=== PATIENT | female | born 1945 | race Caucasian/White ===

== ENCOUNTER 2023-12-04 22:30 | Inpatient (IN) | payer BC, MEDICARE, OTHER ==
[~2023-12-04] VITALS: Ht 165.1 cm; Wt 71.2 kg
[~2023-12-04 22:30] MED LIST: PIPE3.379 IV
[2023-12-04] MEDS ORDERED: CEFEPIME 1 GM VIAL ONE (22:53)
[2023-12-04] MEDS ORDERED: VANCOMYCIN 1 GM /D5W 250 ML PB IV ONE (22:53)
[2023-12-04 23:10] LABS: BASOPHILS % (AUTO) 0.2 % (0.0-2.0); HEMATOCRIT 27 % (33-45); HEMOGLOBIN 8.1 g/dL (11.5-14.8); LYMPHOCYTES # (AUTO) 1.9 K/uL (0.8-4.8); LYMPHOCYTES % (AUTO) 13.8 % (20.0-44.0); MEAN CORPUSCULAR HEMOGLOBIN 29 PG (26.0-33.0); MEAN CORPUSCULAR HGB CONC 30 g/dl (31.0-36.0); MEAN CORPUSCULAR VOLUME 97 fL (82-100); MONOCYTES # (AUTO) 1.3 K/uL (0.1-1.30); MONOCYTES % (AUTO) 9.2 % (2.0-12.0); NEUTROPHILS # (AUTO) 10.4 K/uL (1.8-8.9); NEUTROPHILS % (AUTO) 76.8 % (43.0-81.0); PLATELET COUNT (AUTO) 202 K/uL (150-450); RED BLOOD CELL COUNT(AUTO) 2.76 MIL/uL (4.0-5.2); RED CELL DISTRIBUTION WIDTH 22.7 % (11.5-15.0); WHITE BLOOD COUNT (AUTO) 13.6 K/uL (4.3-11.0)
[2023-12-04 23:23] LABS: INR 1.3 (0.91-1.10); PARTIAL THROMBOPLASTIN TIME 36.6 SEC (24.3-34.3); PROTHROMBIN TIME 13.5 SECS (9.2-11.1)
[2023-12-04] MEDS: CEFEPIME 1 GM in IV D5W 50 ML IV ONE (23:25)
[2023-12-04 23:29] LABS: CALCIUM, SERUM 10.1 mg/dL (8.5-10.1); CARBON DIOXIDE 25 mmol/L (21-32); CHLORIDE 105 mmol/L (98-107); CREATININE 2.1 mg/dL (0.6-1.3); GLUCOSE 110 mg/dL (74-106); POTASSIUM 3.8 mmol/L (3.5-5.1); SODIUM SERUM 140 mmol/L (136-145); UREA NITROGEN, BLOOD 36 mg/dL (7-18)
[2023-12-04 23:35] LABS: ALBUMIN 1.6 g/dL (3.4-5.0); ALKALINE PHOSPHATASE 127 U/L (46-116); ASPARTATE AMINOTRANSFERASE 17 U/L (15-37); BILIRUBIN,DIRECT 0.2 mg/dL (0.0-0.2); BILIRUBIN,TOTAL 0.5 mg/dL (0.2-1.0); TOTAL PROTEIN, SERUM 6.3 g/dL (6.4-8.2)
[2023-12-04 23:36] LABS: ALANINE AMINOTRANSFERASE < 6 U/L (12-78)
[2023-12-04 23:40] LABS: ADD URINE CULTURE YES; APPEARANCE,URINE CLOUDY (CLEAR); BACTERIA,URINE Moderate /HPF (None Seen); BILIRUBIN,URINE NEGATIVE (NEGATIVE); BLOOD, URINE 1+ Ery/uL (NEGATIVE); COLOR,URINE DARK YELLOW (YELLOW); KETONES,URINE NEGATIVE (NEGATIVE); LEUKOCYTE ESTERASE ,URINE 3+ (NEGATIVE); NITRITE, URINE POSITIVE (NEGATIVE); PROTEIN,URINE 1+ mg/dl (NEGATIVE); SQUAMOUS EPITHELIAL CELL,UR Rare /HPF (None Seen); UGLUCOSE NEGATIVE (NEGATIVE); UROBILINOGEN,URINE 0.2 EU/dL (0.2); WBC,URINE 21-50 /HPF (0-3)
[2023-12-04] MEDS: VANCOMYCIN 1 GM in IV D5W 250 ML IV ONE (23:43)
[2023-12-04] MEDS: IV NS 0.9% 1,000 ML BAG IV ONE (23:43)
[2023-12-04 23:52] LABS: LACTIC ACID 1.5 mmol/L (0.4-2.0)
[2023-12-05] VITALS (10 sets, daily range): BP systolic 94–117; BP diastolic 56–72; TEMP 97.5–98.1; O2SAT 99–100
[2023-12-05 00:29] LABS: LIPASE 18 U/L (16-77); NT-PRO BNP > 25000 pg/mL (0-125)
[2023-12-05] MEDS ORDERED: ALBUTEROL FS 2.5 MG/3 ML VIAL.NEB NEB PRN (01:00)
[2023-12-05] MEDS ORDERED: ZOLPIDEM TARTRATE 5 MG TABLET PO PRN (01:00)
[2023-12-05] MEDS ORDERED: ONDANSETRON HCL/PF 4 MG/2 ML VIAL IVP PRN (01:00)
[2023-12-05] MEDS ORDERED: MAG HYDROX/AL HYDROX/SIMETH 30 ML UDC PO PRN (01:00)
[2023-12-05] MEDS ORDERED: MAGNESIUM HYDROXIDE 30 ML UDC PO PRN (01:00)
[2023-12-05] MEDS ORDERED: IPRATROPIUM NEB FS 0.5 MG/2.5 ML AMPUL.NEB NEB PRN (01:00)
[2023-12-05] MEDS: FUROSEMIDE 20 MG/2 ML VIAL IV SCH (01:52)
[2023-12-05] MEDS: ENOXAPARIN SODIUM 30 MG/0.3 ML DISP.SYRIN SQ SCH (01:53)
[2023-12-05 07:05] LABS: BASOPHILS % (AUTO) 0.2 % (0.0-2.0); HEMATOCRIT 22 % (33-45); LYMPHOCYTES # (AUTO) 1.5 K/uL (0.8-4.8); LYMPHOCYTES % (AUTO) 13.8 % (20.0-44.0); MEAN CORPUSCULAR HEMOGLOBIN 29 PG (26.0-33.0); MEAN CORPUSCULAR HGB CONC 32 g/dl (31.0-36.0); MEAN CORPUSCULAR VOLUME 92 fL (82-100); MONOCYTES # (AUTO) 1.3 K/uL (0.1-1.30); MONOCYTES % (AUTO) 11.9 % (2.0-12.0); NEUTROPHILS # (AUTO) 8.2 K/uL (1.8-8.9); NEUTROPHILS % (AUTO) 74.1 % (43.0-81.0); PLATELET COUNT (AUTO) 184 K/uL (150-450); RED BLOOD CELL COUNT(AUTO) 2.37 MIL/uL (4.0-5.2); RED CELL DISTRIBUTION WIDTH 22.1 % (11.5-15.0); WHITE BLOOD COUNT (AUTO) 11.1 K/uL (4.3-11.0)
[2023-12-05 07:15] LABS: ALANINE AMINOTRANSFERASE < 6 U/L (12-78); ALKALINE PHOSPHATASE 108 U/L (46-116); ASPARTATE AMINOTRANSFERASE 14 U/L (15-37); BILIRUBIN,DIRECT 0.2 mg/dL (0.0-0.2); BILIRUBIN,TOTAL 0.4 mg/dL (0.2-1.0); CALCIUM, SERUM 9.6 mg/dL (8.5-10.1); CARBON DIOXIDE 23 mmol/L (21-32); CHLORIDE 105 mmol/L (98-107); CREATININE 2.1 mg/dL (0.6-1.3); GLUCOSE 98 mg/dL (74-106); MAGNESIUM 2.3 mg/dL (1.8-2.4); NT-PRO BNP > 25000 pg/mL (0-125); PHOSPHORUS 3.8 mg/dL (2.5-4.9); POTASSIUM 3.2 mmol/L (3.5-5.1); SODIUM SERUM 139 mmol/L (136-145); TOTAL PROTEIN, SERUM 5.4 g/dL (6.4-8.2); UREA NITROGEN, BLOOD 36 mg/dL (7-18)
[2023-12-05 07:40] LABS: ALBUMIN 1.3 g/dL (3.4-5.0)
[2023-12-05 07:41] LABS: HEMOGLOBIN 6.9 g/dL (11.5-14.8)
[2023-12-05] MEDS: PANTOPRAZOLE 40 MG VIAL IV SCH (08:36)
[2023-12-05] MEDS: CEFEPIME 2 GM in IV D5W 100 ML IV SCH (08:37)
[2023-12-05] MEDS ORDERED: NEOM28.43 TP (10:43)
[2023-12-05] MEDS ORDERED: AMIN30LI25 PO (10:43)
[2023-12-05] MEDS ORDERED: LACT1CAP57 PO (10:43)
[2023-12-05] MEDS ORDERED: TRAM50TA2 PO (10:43)
[2023-12-05] MEDS ORDERED: BUDE0.253 IH (10:43)
[2023-12-05] MEDS ORDERED: TIOT18CA3 IH (10:43)
[2023-12-05] MEDS ORDERED: MULT-213 PO (10:43)
[2023-12-05] MEDS ORDERED: ACET325T53 PO ×2 (10:43)
[2023-12-05] MEDS ORDERED: BISA10SU11 RC (10:43)
[2023-12-05] MEDS ORDERED: FAMO20TA8 PO (10:43)
[2023-12-05] MEDS ORDERED: NA P133E RC (10:43)
[2023-12-05] MEDS ORDERED: VENL75TA4 PO (10:43)
[2023-12-05] MEDS ORDERED: CLOP75TA15 PO (10:43)
[2023-12-05] MEDS ORDERED: VITS42.53 TP (10:43)
[2023-12-05] MEDS ORDERED: PREG-57 PO (10:43)
[2023-12-05] MEDS ORDERED: DOCU100C36 PO (10:43)
[2023-12-05] MEDS ORDERED: EPOE1VIA4 SQ (10:43)
[2023-12-05] MEDS ORDERED: FOLI0.4T6 PO (10:43)
[2023-12-05] MEDS ORDERED: FERR325T23 PO (10:43)
[2023-12-05] MEDS ORDERED: ISOS30TA86 PO (10:43)
[2023-12-05] MEDS ORDERED: OMEG1CAP PO (10:43)
[2023-12-05] MEDS ORDERED: MAGN400T8 PO (10:43)
[2023-12-05] MEDS ORDERED: OLAN5TAB3 PO (10:43)
[2023-12-05] MEDS ORDERED: METO-358 PO (10:43)
[2023-12-05] MEDS ORDERED: SENN8.6T19 PO (10:43)
[2023-12-05] MEDS ORDERED: CYAN500T64 PO (10:43)
[2023-12-05] MEDS ORDERED: IPRA3AMP23 IH ×2 (10:43)
[2023-12-05] MEDS ORDERED: LEVO125T8 PO (10:43)
[2023-12-05] MEDS ORDERED: LIDO700A30 TP (10:43)
[2023-12-05] MEDS ORDERED: ZINC56.713 TP (10:43)
[2023-12-05] MEDS ORDERED: TORS10TA17 PO (10:43)
[2023-12-05] MEDS ORDERED: PANT40TA49 PO (10:43)
[2023-12-05] MEDS ORDERED: ARGI1POW13 PO (10:43)
[2023-12-05] MEDS ORDERED: ASPI-1420 PO (10:43)
[2023-12-05] MEDS ORDERED: CHOL3000 PO (10:43)
[2023-12-05] MEDS ORDERED: ATOR40TA PO (10:43)
[2023-12-05] MEDS ORDERED: ZINC1CAP3 PO (10:43)
[2023-12-05] MEDS ORDERED: ASCO500T21 PO (10:43)
[2023-12-05] MEDS ORDERED: MAGN400O6 PO (10:43)
[2023-12-05] MEDS ORDERED: CYCL5TAB PO (10:43)
[2023-12-05 10:54] LABS: ANISOCYTOSIS 1+; BAND % (MANUAL) 4 % (0.0-5.0); BASOPHILS % (MANUAL) 0 % (0.0-2.0); EOSINOPHILS % (MANUAL) 0 % (0-4); HYPOCHROMASIA 1+; LYMPHOCYTES % (MANUAL) 20 % (16-48); MONOCYTES % (MANUAL) 7 % (0-11.0); NEUTROPHILS % (MANUAL) 69 (42-76); PLATELET ESTIMATE ADEQUATE; TEAR DROP CELLS RARE
[2023-12-05 10:55] LABS: OVALOCYTES 1+
[2023-12-05] MEDS: POTASSIUM CL. PREMIX PERIPHER. 50 ML IV SCH (11:50)
[2023-12-05] MEDS ORDERED: FUROSEMIDE 40 MG/4 ML VIAL IV PRN (12:00)
[2023-12-05] MEDS: METOPROLOL SUCCINATE 50 MG TAB.SR.24H PO SCH (16:00)
[2023-12-05 16:44] LABS: CREATININE, URINE 27.6 MG/DL (30.0-125.0); URINE TOTAL PROTEIN 17.7 mg/dL (0-11.9)
[2023-12-05] MEDS: CLOTRIMAZOLE 1% 15 GM TUBE TP SCH (17:35)
[2023-12-05] MEDS: ALBUTEROL FS 2.5 MG/3 ML VIAL.NEB NEB SCH (20:00)
[2023-12-05] MEDS: ACETAMINOPHEN 325 MG TABLET PO PRN (21:08)
[2023-12-06] VITALS (10 sets, daily range): BP systolic 90–122; BP diastolic 51–71; TEMP 98–98.4; O2SAT 94–100
[2023-12-06 07:18] LABS: BASOPHILS % (AUTO) 0.4 % (0.0-2.0); HEMATOCRIT 29 % (33-45); HEMOGLOBIN 9.4 g/dL (11.5-14.8); LYMPHOCYTES # (AUTO) 1.7 K/uL (0.8-4.8); LYMPHOCYTES % (AUTO) 15.5 % (20.0-44.0); MEAN CORPUSCULAR HEMOGLOBIN 29 PG (26.0-33.0); MEAN CORPUSCULAR HGB CONC 33 g/dl (31.0-36.0); MEAN CORPUSCULAR VOLUME 89 fL (82-100); MONOCYTES % (AUTO) 9.3 % (2.0-12.0); NEUTROPHILS # (AUTO) 8.1 K/uL (1.8-8.9); NEUTROPHILS % (AUTO) 74.8 % (43.0-81.0); PLATELET COUNT (AUTO) 203 K/uL (150-450); RED BLOOD CELL COUNT(AUTO) 3.23 MIL/uL (4.0-5.2); RED CELL DISTRIBUTION WIDTH 20.7 % (11.5-15.0); WHITE BLOOD COUNT (AUTO) 10.8 K/uL (4.3-11.0)
[2023-12-06 08:05] LABS: CREATINE KINASE, TOTAL 17 U/L (26-192)
[2023-12-06 08:12] LABS: *ANA ANTI-CENTROMERE B AB <0.2 AI (0.0-0.9); *ANA ANTI-DNA(DS) AB, QN <1 IU/mL (0-9); *ANA ANTI-JO-1 <0.2 AI (0.0-0.9); *ANA ANTICHROMATIN ANTIBODY <0.2 AI (0.0-0.9); *ANA RNP ANTIBODIES <0.2 AI (0.0-0.9); *ANA SJOGREN'S ANTI-SS-A <0.2 AI (0.0-0.9); *ANA SJOGREN'S ANTI-SS-B <0.2 AI (0.0-0.9); *ANAANTI-SCLERODERMA-70 AB <0.2 AI (0.0-0.9); *ANASMITH AB <0.2 AI (0.0-0.9); COMPLEMENT C3, SERUM 130 mg/dL (82-167); COMPLEMENT C4, SERUM 31 mg/dL (12-38)
[2023-12-06] MEDS: PANTOPRAZOLE 40 MG TABLET.DR PO SCH (09:23)
[2023-12-06 09:32] LABS: ALANINE AMINOTRANSFERASE < 6 U/L (12-78); ALKALINE PHOSPHATASE 112 U/L (46-116); ASPARTATE AMINOTRANSFERASE 14 U/L (15-37); BILIRUBIN,TOTAL 0.4 mg/dL (0.2-1.0); CALCIUM, SERUM 9.9 mg/dL (8.5-10.1); CARBON DIOXIDE 23 mmol/L (21-32); CHLORIDE 106 mmol/L (98-107); CREATININE 2.3 mg/dL (0.6-1.3); GLUCOSE 84 mg/dL (74-106); MAGNESIUM 2.3 mg/dL (1.8-2.4); PHOSPHORUS 3.3 mg/dL (2.5-4.9); POTASSIUM 3.6 mmol/L (3.5-5.1); SODIUM SERUM 141 mmol/L (136-145); TOTAL PROTEIN, SERUM 5.8 g/dL (6.4-8.2); UREA NITROGEN, BLOOD 41 mg/dL (7-18)
[2023-12-06 09:42] LABS: ALBUMIN 1.3 g/dL (3.4-5.0)
[2023-12-06] MEDS ORDERED: VANCOMYCIN 500 MG in IV D5W 100ml IV SCH (12:00)
[2023-12-06] MEDS: VANCOMYCIN 750 MG in IV D5W 250 ML IV SCH (12:04)
[2023-12-07] VITALS (17 sets, daily range): BP systolic 115–138; BP diastolic 50–93; TEMP 97.7–98.8; O2SAT 92–100
[2023-12-07 07:06] LABS: PTH, INTACT 20 pg/mL (15-65)
[2023-12-07 07:30] LABS: BASOPHILS % (AUTO) 0.4 % (0.0-2.0); HEMATOCRIT 31 % (33-45); LYMPHOCYTES # (AUTO) 1.7 K/uL (0.8-4.8); LYMPHOCYTES % (AUTO) 16.2 % (20.0-44.0); MEAN CORPUSCULAR HEMOGLOBIN 29 PG (26.0-33.0); MEAN CORPUSCULAR HGB CONC 32 g/dl (31.0-36.0); MEAN CORPUSCULAR VOLUME 90 fL (82-100); MONOCYTES % (AUTO) 9.5 % (2.0-12.0); NEUTROPHILS # (AUTO) 7.8 K/uL (1.8-8.9); NEUTROPHILS % (AUTO) 73.9 % (43.0-81.0); PLATELET COUNT (AUTO) 241 K/uL (150-450); RED BLOOD CELL COUNT(AUTO) 3.44 MIL/uL (4.0-5.2); RED CELL DISTRIBUTION WIDTH 20.7 % (11.5-15.0); WHITE BLOOD COUNT (AUTO) 10.5 K/uL (4.3-11.0)
[2023-12-07 07:52] LABS: ALANINE AMINOTRANSFERASE < 6 U/L (12-78); ALKALINE PHOSPHATASE 121 U/L (46-116); ASPARTATE AMINOTRANSFERASE 14 U/L (15-37); BILIRUBIN,TOTAL 0.4 mg/dL (0.2-1.0); CALCIUM, SERUM 9.8 mg/dL (8.5-10.1); CARBON DIOXIDE 24 mmol/L (21-32); CHLORIDE 106 mmol/L (98-107); CREATININE 1.8 mg/dL (0.6-1.3); GLUCOSE 69 mg/dL (74-106); MAGNESIUM 2.2 mg/dL (1.8-2.4); PHOSPHORUS 2.8 mg/dL (2.5-4.9); POTASSIUM 2.9 mmol/L (3.5-5.1); SODIUM SERUM 141 mmol/L (136-145); TOTAL PROTEIN, SERUM 5.7 g/dL (6.4-8.2); UREA NITROGEN, BLOOD 36 mg/dL (7-18)
[2023-12-07 08:04] LABS: ALBUMIN 1.3 g/dL (3.4-5.0)
[2023-12-07] MEDS: PROSOURCE / PROSTAT (PYXIS) 30 ML UDC PO SCH (08:27)
[2023-12-07] MEDS ORDERED: POTASSIUM CHLORIDE 20 MEQ POWDER PACKET GT ONE ×2 (10:00)
[2023-12-07] MEDS: POTASSIUM CHLORIDE 10 MEQ TABLET.SA PO ONE (10:13)
[2023-12-07] MEDS: MUPIROCIN OINT 2% 22 GM TUBE NS SCH (21:38)
[2023-12-07] MEDS: VANCOMYCIN 750 MG in IV D5W 250 ML IV SCH (23:34)
[2023-12-08] VITALS (12 sets, daily range): BP systolic 119–147; BP diastolic 70–84; TEMP 97.8–98.4; O2SAT 95–100
[2023-12-08 07:26] LABS: ALKALINE PHOSPHATASE 117 U/L (46-116); ASPARTATE AMINOTRANSFERASE 17 U/L (15-37); BILIRUBIN,TOTAL 0.4 mg/dL (0.2-1.0); CALCIUM, SERUM 10.2 mg/dL (8.5-10.1); CARBON DIOXIDE 25 mmol/L (21-32); CHLORIDE 108 mmol/L (98-107); CREATININE 1.6 mg/dL (0.6-1.3); GLUCOSE 80 mg/dL (74-106); MAGNESIUM 2.1 mg/dL (1.8-2.4); PHOSPHORUS 3.3 mg/dL (2.5-4.9); SODIUM SERUM 142 mmol/L (136-145); TOTAL PROTEIN, SERUM 6.1 g/dL (6.4-8.2); UREA NITROGEN, BLOOD 34 mg/dL (7-18)
[2023-12-08 07:27] LABS: ALANINE AMINOTRANSFERASE < 6 U/L (12-78)
[2023-12-08 07:29] LABS: ALBUMIN 1.3 g/dL (3.4-5.0)
[2023-12-08 08:16] LABS: BASOPHILS # (AUTO) 0.1 K/uL (0.0-0.2); BASOPHILS % (AUTO) 0.5 % (0.0-2.0); EOSINOPHILS # (AUTO) 0.1 K/uL (0.0-0.7); EOSINOPHILS % (AUTO) 1.2 % (0.0-6.0); HEMATOCRIT 34 % (33-45); LYMPHOCYTES # (AUTO) 2.4 K/uL (0.8-4.8); LYMPHOCYTES % (AUTO) 22.4 % (20.0-44.0); MEAN CORPUSCULAR HEMOGLOBIN 29 PG (26.0-33.0); MEAN CORPUSCULAR HGB CONC 32 g/dl (31.0-36.0); MEAN CORPUSCULAR VOLUME 90 fL (82-100); MONOCYTES # (AUTO) 1.2 K/uL (0.1-1.30); NEUTROPHILS # (AUTO) 6.8 K/uL (1.8-8.9); NEUTROPHILS % (AUTO) 64.9 % (43.0-81.0); PLATELET COUNT (AUTO) 292 K/uL (150-450); RED BLOOD CELL COUNT(AUTO) 3.79 MIL/uL (4.0-5.2); RED CELL DISTRIBUTION WIDTH 21.1 % (11.5-15.0); WHITE BLOOD COUNT (AUTO) 10.5 K/uL (4.3-11.0)
[2023-12-08 11:11] LABS: *SPE A/G RATIO 0.5 (0.7-1.7); *SPE ALBUMIN 1.7 g/dL (2.9-4.4); *SPE ALPHA-1-GLOBULIN 0.5 g/dL (0.0-0.4); *SPE BETA GLOBULIN 0.8 g/dL (0.7-1.3); *SPE GLOBULIN, TOTAL 3.5 g/dL (2.2-3.9); *SPE M-SPIKE Not Observed g/dL (Not Observed); *SPE PROTEIN TOTAL 5.2 g/dL (6.0-8.5); *SPEGAMMA GLOBULIN 1.2 g/dL (0.4-1.8)
[2023-12-08] MEDS ORDERED: MEROPENEM 1 G VIAL IV ONE (22:53)
[2023-12-08] MEDS: MEROPENEM 1 G in IV NS 0.9% 100 ML IV SCH (23:02)
[2023-12-09] VITALS (15 sets, daily range): BP systolic 129–140; BP diastolic 58–89; TEMP 96.5–99.1; O2SAT 94–100
[2023-12-09 07:51] LABS: CALCIUM, SERUM 10.6 mg/dL (8.5-10.1); CARBON DIOXIDE 23 mmol/L (21-32); CHLORIDE 107 mmol/L (98-107); CREATININE 1.4 mg/dL (0.6-1.3); GLUCOSE 81 mg/dL (74-106); POTASSIUM 4.2 mmol/L (3.5-5.1); SODIUM SERUM 138 mmol/L (136-145); UREA NITROGEN, BLOOD 47 mg/dL (7-18)
[2023-12-09] MEDS: Z GUARD REMEDY 4 OZ OINT TP PRN (08:47)
[2023-12-09] MEDS: MEROPENEM 1 G in IV NS 0.9% 100 ML IV SCH (10:08)
[2023-12-10] VITALS (14 sets, daily range): BP systolic 127–144; BP diastolic 63–89; TEMP 97.7–98.5; O2SAT 91–100
[2023-12-10 09:12] LABS: BASOPHILS # (AUTO) 0.1 K/uL (0.0-0.2); BASOPHILS % (AUTO) 0.4 % (0.0-2.0); HEMATOCRIT 38 % (33-45); HEMOGLOBIN 11.7 g/dL (11.5-14.8); LYMPHOCYTES # (AUTO) 2.2 K/uL (0.8-4.8); MEAN CORPUSCULAR HEMOGLOBIN 29 PG (26.0-33.0); MEAN CORPUSCULAR HGB CONC 31 g/dl (31.0-36.0); MEAN CORPUSCULAR VOLUME 93 fL (82-100); MONOCYTES % (AUTO) 8.1 % (2.0-12.0); NEUTROPHILS # (AUTO) 9.5 K/uL (1.8-8.9); NEUTROPHILS % (AUTO) 74.5 % (43.0-81.0); PLATELET COUNT (AUTO) 264 K/uL (150-450); RED BLOOD CELL COUNT(AUTO) 4.06 MIL/uL (4.0-5.2); RED CELL DISTRIBUTION WIDTH 21.7 % (11.5-15.0); WHITE BLOOD COUNT (AUTO) 12.8 K/uL (4.3-11.0)
[2023-12-10 09:33] LABS: CALCIUM, SERUM 10.8 mg/dL (8.5-10.1); CARBON DIOXIDE 21 mmol/L (21-32); CHLORIDE 107 mmol/L (98-107); CREATININE 1.4 mg/dL (0.6-1.3); GLUCOSE 88 mg/dL (74-106); POTASSIUM 3.7 mmol/L (3.5-5.1); SODIUM SERUM 141 mmol/L (136-145); UREA NITROGEN, BLOOD 46 mg/dL (7-18)
[2023-12-10 09:37] LABS: ALANINE AMINOTRANSFERASE < 6 U/L (12-78); ALKALINE PHOSPHATASE 142 U/L (46-116); ASPARTATE AMINOTRANSFERASE 28 U/L (15-37); BILIRUBIN,TOTAL 0.4 mg/dL (0.2-1.0); CALCIUM, SERUM 10.8 mg/dL (8.5-10.1); CARBON DIOXIDE 22 mmol/L (21-32); CHLORIDE 112 mmol/L (98-107); CREATININE 1.4 mg/dL (0.6-1.3); GLUCOSE 87 mg/dL (74-106); MAGNESIUM 2.2 mg/dL (1.8-2.4); PHOSPHORUS 3.3 mg/dL (2.5-4.9); POTASSIUM 3.6 mmol/L (3.5-5.1); SODIUM SERUM 146 mmol/L (136-145); TOTAL PROTEIN, SERUM 6.9 g/dL (6.4-8.2); UREA NITROGEN, BLOOD 46 mg/dL (7-18)
[2023-12-10 09:47] LABS: ALBUMIN 1.4 g/dL (3.4-5.0)
[2023-12-10] MEDS: LEVOTHYROXINE SODIUM 125 MCG TABLET PO SCH (09:52)
[2023-12-10] MEDS: ASPIRIN 81 MG TAB.CHEW PO SCH (09:52)
[2023-12-10] MEDS: CLOPIDOGREL BISULFATE 75 MG TABLET PO SCH (09:59)
[2023-12-10 10:35] LABS: BAND % (MANUAL) 4 % (0.0-5.0); LYMPHOCYTES % (MANUAL) 16 % (16-48); METAMYELOCYTES % 1 % (0-0); MONOCYTES % (MANUAL) 6 % (0-11.0); NEUTROPHILS % (MANUAL) 73 (42-76); PLATELET ESTIMATE ADEQUATE
[2023-12-10 10:36] LABS: ANISOCYTOSIS 1+; OVALOCYTES 1+
[2023-12-10] MEDS: IPRATROPIUM NEB FS 0.5 MG/2.5 ML AMPUL.NEB NEB SCH (14:37)
[2023-12-10] MEDS: DOCUSATE SODIUM 100 MG CAPSULE PO SCH (16:39)
[2023-12-10] MEDS: BUDESONIDE RESPULE INH 0.25 MG/2 ML AMPUL.NEB NEB SCH (19:50)
[2023-12-10] MEDS: ATORVASTATIN 40 MG TABLET PO SCH (22:46)
[2023-12-11] VITALS (11 sets, daily range): BP systolic 109–136; BP diastolic 59–75; TEMP 97.7–98.9; O2SAT 95–100
[2023-12-11 07:46] LABS: CALCIUM, SERUM 9.8 mg/dL (8.5-10.1); CARBON DIOXIDE 27 mmol/L (21-32); CHLORIDE 111 mmol/L (98-107); CREATININE 1.4 mg/dL (0.6-1.3); GLUCOSE 76 mg/dL (74-106); POTASSIUM 3.2 mmol/L (3.5-5.1); SODIUM SERUM 144 mmol/L (136-145); UREA NITROGEN, BLOOD 41 mg/dL (7-18)
[2023-12-11] MEDS: ASCORBIC ACID 500 MG TABLET PO SCH (08:26)
[2023-12-11] MEDS: ISOSORBIDE MONONITRATE (30MG) 30 MG TAB.SR.24H PO SCH (08:27)
[2023-12-11] MEDS ORDERED: TIOTROPIUM BROMIDE 6 CAP/BOX CAP.W.DEV IH SCH (09:00)
[2023-12-11 09:19] LABS: CALCIUM, SERUM 11.1 mg/dL (8.5-10.1); CARBON DIOXIDE 25 mmol/L (21-32); CHLORIDE 110 mmol/L (98-107); CREATININE 1.4 mg/dL (0.6-1.3); GLUCOSE 85 mg/dL (74-106); POTASSIUM 3.5 mmol/L (3.5-5.1); SODIUM SERUM 145 mmol/L (136-145); UREA NITROGEN, BLOOD 40 mg/dL (7-18)
[2023-12-11] MEDS: POTASSIUM CHLORIDE 20 MEQ POWDER PACKET NG SCH (10:36)
[2023-12-11] MEDS: MEROPENEM 1 G in IV NS 0.9% 100 ML IV SCH (10:57)
[2023-12-12] MEDS ORDERED: VANCOMYCIN 750 MG in IV D5W 250 ML IV SCH (08:00)
[2023-12-12 08:41] LABS: ABG OXYGEN SATURATION 97.7 % (92.0-98.5); ABG PCO2 34.1 mmHg (35.0-45.0); ABG PH 7.408 (7.350-7.450); ABG PO2 101.3 mmHg (75.0-100.0); ABG TOTAL HEMOGLOBIN 12.1 G/dL (12.0-16.0); AaDO2 58.1 mmHg; COHb 0.6 % (0.5-1.5); MetHb 0.1 % (0.0-1.5); SITE, ABG Right Radial
== END 2023-12-11 17:50 | DRG 871 ==
LOC: ER 22:32 → TELE1 12-05 00:17 → MEDSG1 12-09 10:25 → TELE1 12-09 12:21
PROVIDERS: ADMIT Nurse Practitioner Family; ATTEND Internal Medicine
PROC: 30233N1 Transfusion of Nonautologous Red Blood Cells into Peripheral Vein, Percutaneous Approach (ICD-10-PCS; principal; 2023-12-05)
DX: A41.02 Sepsis due to Methicillin resistant Staphylococcus aureus (principal); G93.41 Metabolic encephalopathy; I21.A1 Myocardial infarction type 2; J96.01 Acute respiratory failure with hypoxia; J15.212 Pneumonia due to Methicillin resistant Staphylococcus aureus; I50.23 Acute on chronic systolic (congestive) heart failure; N39.0 Urinary tract infection, site not specified; N17.9 Acute kidney failure, unspecified; I13.0 Hypertensive heart and chronic kidney disease with heart failure and stage 1 through stage 4 chronic kidney disease, or unspecified chronic kidney disease; J84.9 Interstitial pulmonary disease, unspecified; N18.9 Chronic kidney disease, unspecified; B96.20 Unspecified Escherichia coli [E. coli] as the cause of diseases classified elsewhere; E03.9 Hypothyroidism, unspecified; E87.6 Hypokalemia; E88.09 Other disorders of plasma-protein metabolism, not elsewhere classified; I25.10 Atherosclerotic heart disease of native coronary artery without angina pectoris; Z66 Do not resuscitate; M89.8X9 Other specified disorders of bone, unspecified site; Z87.891 Personal history of nicotine dependence; Z95.810 Presence of automatic (implantable) cardiac defibrillator; M32.9 Systemic lupus erythematosus, unspecified; J84.10 Pulmonary fibrosis, unspecified; J45.909 Unspecified asthma, uncomplicated; D64.9 Anemia, unspecified; Z20.822 Contact with and (suspected) exposure to COVID-19; K22.89 Other specified disease of esophagus
CPT/HCPCS: 36415; 36600; 70450-TC; 71045-TC; 71250-TC; 76770-TC; 80048-TC; 80053-TC; 80076-TC; 80202-TC; 81001; 82550-TC; 82570-TC; 82803-TC; 82962-TC; 83605-TC; 83690-TC; 83735-TC; 83880; 83970; 84100-TC; 84134-TC; 84155; 84165; 84300-TC; 84443-TC; 84484-TC; 85025-TC; 85730-TC; 86225; 86235; 86850-TC; 87040-TC; 87081-TC; 87086-TC; 92526; 92611-TC; 93307-TC; 94760-TC; 94799-TC; A4223; A6403; G0378; J0692; J1650; J1940; J2185; J3370; J3371; J3480; J7030; J7050; J7060; P9016